=== PATIENT | male | born 1970 ===

== ENCOUNTER 2017-11-03 09:57 | Emergency (ER) | payer OTHER, BC ==
[2017-11-03 10:11] VITALS: RESP 18; TEMP 98.1
[2017-11-03 10:21] VITALS: BMI 27.3
--- NOTE | 2017-11-03 11:00 | C.PDOC ---
History Of Present Illness 47 year old male presents to the ED for evaluation of right foot pain which began after he slipped on black ice yesterday. Patient denies head injury, LOC, back pain, knee pain, extremity numbness/weakness. Time Seen by Provider: 11/03/17 10:55 Chief Complaint (Nursing): Lower Extremity Problem/Injury History Per: Patient History/Exam Limitations: no limitations Onset/Duration Of Symptoms: Hrs Current Symptoms Are (Timing): Still Present Additional History Per: Patient - Ankle/Foot Description Of Injury: Other (slipped) Past Medical History Reviewed: Historical Data, Nursing Documentation, Vital Signs Vital Signs: Last Vital Signs Temp 98.1 F 11/03/17 10:20 Pulse 83 11/03/17 10:20 Resp 18 11/03/17 10:20 BP 132/84 11/03/17 10:20 Pulse Ox 98 11/03/17 12:33 - Medical History PMH: Hypercholesterolemia Surgical History: No Surg Hx Family History: States: Unknown Family Hx - Social History Hx Alcohol Use: Yes Hx Substance Use: No Review Of Systems Musculoskeletal: Positive for: Foot Pain (dorsum, right). Negative for: Back Pain, Other (knee pain ) Neurological: Negative for: Weakness, Numbness, Other Physical Exam - Physical Exam Appears: Non-toxic, No Acute Distress Skin: Normal Color, Warm, Dry, No Other (erythema or warmth to right foot ) Oral Mucosa: Moist Throat: Erythema (mild), No Exudate, Other (no tonsillar swelling. uvula at midline) Neck: Supple Lymphatic: No Adenopathy Extremity: Normal ROM (right knee ), Tenderness (to dorsum of right foot ), No Pedal Edema, No Calf Tenderness, Capillary Refill (less than 2 seconds ), No Deformity, Swelling (mild, to dorsum of right foot ) Neurological/Psych: Oriented x3, Normal Speech, Normal Cognition, Normal Sensation Gait: Steady ED Course And Treatment O2 Sat by Pulse Oximetry: 98 (on RA) Pulse Ox Interpretation: Normal Medical Decision Making Medical Decision Making: Progress: Right foot XR ordered and reviewed. Motrin PO administered. Prior to discharge, patient mentions he also has throat pain and notes his voice is hoarse. Physical examination updated. Rapid strep test ordered. Right foot XR IMPRESSION: Soft tissue swelling. No acute displaced fracture or dislocation identified. 1249 pm pt with neg rapid strep. will refer to ENT. Disposition Counseled Patient/Family Regarding: Studies Performed, Diagnosis, Need For Followup, Rx Given - Disposition Referrals: Podiatry Clinic [Outside] [facility] [Outside] Claus Browne MD [Staff Provider] - Disposition: HOME/ ROUTINE Disposition Time: 12:49 Condition: GOOD Additional Instructions: Por favor, envulvete con susanne venda as loretta el da para ayudar a aliviar la hinchazn. Mantenga el pie elevado siempre que sea posible para reducir la hinchazn. El fro se comprime al pie loretta 10 minutos a la vez cada 4 horas. Lucía un seguimiento con la clnica de podologa en unos byrd. [place] ibuprofeno segn lo prescrito para eagle si es necesario. Please wrap foot with fletcher bandage during the daytime to help releive swelling. Keep foot elevated whenever possible to reduce swelling. Cold compresses to foot for 10 minutes at a time every 4 hours. Follow up with podiatry clinic in a few days. Take Ibuprofen as prescribed for eagle if needed. Por favor lucía grgaras con agua salada tibia varias veces al da. Por favor, lucía un seguimiento con la clnica mdica o el doctor Hollie (odo / vinya / vargas) para susanne evaluacin ms profunda del dolor de garganta y la ronquera. Please gargle with warm salty water several times a day. Please follow up with medical clinic or Dr Browne (ear/nose/throat) doctor for further evaluatin of throat pain and hoarseness. Prescriptions: Ibuprofen [Motrin] 600 mg PO TID #30 tab Instructions: Foot Sprain (ED), Pharyngitis (ED) Forms: Gen Discharge Inst Irish, [facility] (Irish) Print Language: CYMRO - Clinical Impression Clinical Impression: Sprain of right foot, Pharyngitis - PA / POLYGRAPH TECHNICIAN / Resident Statement MD/DO has reviewed & agrees with the documentation as recorded. - Scribe Statement The provider has reviewed the documentation as recorded by the Scribe (Sharon Ruvalcaba) All medical record entries made by the Scribe were at my direction and personally dictated by me. I have reviewed the chart and agree that the record accurately reflects my personal performance of the history, physical exam, medical decision making, and the department course for this patient. I have also personally directed, reviewed, and agree with the discharge instructions and disposition.
--- NOTE | 2017-11-03 12:00 | RAD ---
PROCEDURE: Right Foot Radiographs. HISTORY: swelling tender dorsum foot COMPARISON: None available. FINDINGS: BONES: No acute displaced fracture. Mild degenerative changes. JOINTS: No dislocation. SOFT TISSUES: Soft tissue swelling. No evidence of radiopaque foreign body. OTHER FINDINGS: None. IMPRESSION: Soft tissue swelling. No acute displaced fracture or dislocation identified. If symptoms persist, or if there is continued clinical concern, x-ray follow-up in 7-10 days should be considered.
[2017-11-03 12:57] VITALS: BP 124/75; PULSE 86
[2017-11-05 18:56] VITALS: O2SAT 98
== END 2017-11-03 12:57 | disposition home or self-care (01) ==
LOC: C.ER 09:57
DX: S93.601A Unspecified sprain of right foot, initial encounter (principal); W00.0XXA Fall on same level due to ice and snow, initial encounter; Y92.89 Other specified places as the place of occurrence of the external cause; J02.9 Acute pharyngitis, unspecified

== ENCOUNTER 2018-03-27 21:50 | Emergency (ER) | payer BC, OTHER ==
[2018-03-27 21:50] VITALS: BMI 27.3
[2018-03-27 22:08] VITALS: BP 127/82; PULSE 70; RESP 14; TEMP 98.7; O2SAT 98
--- NOTE | 2018-03-27 22:31 | C.PDOC ---
History Of Present Illness 47 year old male, with no significant past medical history, who presents to the emergency department for evaluation of a gradually worsening bilateral neck pain onset for x2 weeks. Patient admits to heavy lifting at work and states pain began after lifting a garbage bag. He describes the pain as aching on lateral sides of the neck and reports pain worsens with head rotation. Patient was seen by PMD and had xray done with normal findings. Patient takes ibuprofen without improvement. He denies direct trauma or injury, headache, dizziness, visual changes, focal deficits,m CP, SOB, dyspnea, palpitation, denies weakness , sensory or vascular deficits to b/l arms. No further medical complaints. PMD: Corrie Linares Time Seen by Provider: 03/27/18 22:10 Chief Complaint (Nursing): Medical Clearance History Per: Patient History/Exam Limitations: no limitations Onset/Duration Of Symptoms: Days (x2 weeks), Worse Since (onset) Current Symptoms Are (Timing): Still Present Reports Recently: Treated By A Physician Past Medical History Reviewed: Historical Data, Nursing Documentation, Vital Signs Vital Signs: Last Vital Signs Temp 98.7 F 03/27/18 22:05 Pulse 70 03/27/18 22:05 Resp 14 03/27/18 22:05 BP 127/82 03/27/18 22:05 Pulse Ox 98 03/27/18 23:01 - Medical History PMH: Hypercholesterolemia Surgical History: No Surg Hx Family History: States: Unknown Family Hx - Social History Hx Alcohol Use: Yes Hx Substance Use: No Review Of Systems Except As Marked, All Systems Reviewed And Found Negative. Constitutional: Negative for: Fever, Chills Eyes: Negative for: Vision Change ENT: Negative for: Throat Pain Cardiovascular: Negative for: Chest Pain, Palpitations, Edema Respiratory: Negative for: Cough, Shortness of Breath, Wheezing Genitourinary: Negative for: Incontinence Musculoskeletal: Positive for: Neck Pain Skin: Negative for: Rash Neurological: Negative for: Weakness (b/l arms), Headache, Dizziness Physical Exam - Physical Exam Appears: Well, Non-toxic, No Acute Distress Skin: Normal Color, Warm, Dry, No Rash Head: Normacephalic Eye(s): bilateral: PERRL Ear(s): Bilateral: Normal Nose: No Flaring, No Discharge Oral Mucosa: Moist Throat: No Erythema, No Drooling Neck: Decreased ROM (to B/L rotation due to mild pain), Trachea Midline, No Midline Cervical Tenderness, No Step Off Deformity, Supple, Other (Left>Right tendernes over SCM muscle with mod muscle spasm. No midline tenderness, no skin changes.) Cardiovascular: Rhythm Regular, No Murmur Respiratory: No Decreased Breath Sounds, No Accessory Muscle Use, No Stridor, No Wheezing Gastrointestinal/Abdominal: Soft, No Tenderness, No Distention, No Guarding Back: No Vertebral Tenderness, No Paraspinal Tenderness Extremity: Normal ROM, No Tenderness, No Deformity, No Swelling Neurological/Psych: Oriented x3, Normal Speech, Normal Motor, Normal Sensation, Normal Reflexes ED Course And Treatment O2 Sat by Pulse Oximetry: 98 (RA) Pulse Ox Interpretation: Normal Progress Note: On re-evaluation, pt is afebrile, hemodynamicaly stable. Non- toxic. Tolerate Po well in ED. Head: AT/NC. ENT: no acute findings. Neck: Supple, (+) mod tenderness over SCM muscle with muscle spasm. No midline tenderness, no palpable step offs, no skin changes. Lungs: CTA B/L, BS equal B/ L. Neurologicaly intact. results review with pt. Pt has clinical findings c/ w cervical strain. Pt advised on course of ds. Ref. to F/u with PMD in 2-3 days for re-eval. return to ED if any worsening or new changes. Disposition Counseled Patient/Family Regarding: Diagnosis, Need For Followup, Rx Given - Disposition Referrals: Corrie Linares [Staff Provider] - Disposition: HOME/ ROUTINE Disposition Time: 22:44 Condition: STABLE Additional Instructions: Avoid arm lifting for 1-2 weeks take medication as prescribed Follow up with PMD in 2-3 days for re-evaluation. Return to ED if any worsening or new changes. Prescriptions: Methocarbamol [Robaxin] 500 mg PO TID #14 tab Prednisone [Deltasone] 40 mg PO DAILY #8 tablet traMADol [Ultram] 50 mg PO TID #7 tab Instructions: Cervical Muscle Strain (DC) Forms: [email or web address] (Occitan), Work Excuse Print Language: LIBERIAN - Clinical Impression Clinical Impression: Cervical strain
== END 2018-03-27 23:31 | disposition home or self-care (01) ==
LOC: C.ER 21:50
DX: S16.1XXA Strain of muscle, fascia and tendon at neck level, initial encounter (principal); X50.9XXA Other and unspecified overexertion or strenuous movements or postures, initial encounter; Y99.0 Civilian activity done for income or pay